=== PATIENT | female | born 1995 | race African-American/Black ===

== ENCOUNTER 2018-07-21 17:54 | Emergency (ER) | payer SELFPAY ==
[~2018-07-21] VITALS: Ht 180.3 cm; Wt 55.0 kg
[2018-07-21] MEDS ORDERED: IBUPROFEN 600MG TABLET PO ONE (19:15)
[2018-07-21] MEDS ORDERED: ONDANSETRON 4MG ODT PO ONE (19:30)
[2018-07-21 20:59] VITALS: BP 128/79
== END 2018-07-21 21:01 | disposition home or self-care (01) ==
LOC: ER 17:54
DX: S02.2XXA Fracture of nasal bones, initial encounter for closed fracture (principal); Z88.1 Allergy status to other antibiotic agents; Y08.89XA Assault by other specified means, initial encounter; Y93.89 Activity, other specified; Y92.89 Other specified places as the place of occurrence of the external cause; Y99.8 Other external cause status
CPT/HCPCS: 70160; 81025; 99284; Q0162

== ENCOUNTER 2018-10-05 07:26 | Emergency (ER) | payer MEDICAID ==
[~2018-10-05] VITALS: Ht 170.2 cm; Wt 53.4 kg
[2018-10-05] MEDS ORDERED: PENICILLIN G BENZATHINE 1,200,000 UNITS/2ML SYR IM ONE (08:15)
[2018-10-05] MEDS ORDERED: ACETAMINOPHEN WITH CODEINE 120-12MG/5ML UDC PO ONE (08:15)
[2018-10-05 08:18] VITALS: BP 140/74
== END 2018-10-05 08:28 | disposition home or self-care (01) ==
LOC: ER 07:26
DX: J02.9 Acute pharyngitis, unspecified (principal); F17.200 Nicotine dependence, unspecified, uncomplicated; Z88.8 Allergy status to other drugs, medicaments and biological substances
CPT/HCPCS: 81025; 87070; 87430; 96372; 99283; J0561

== ENCOUNTER 2019-01-29 01:55 | Emergency (ER) | payer MEDICAID ==
[~2019-01-29] VITALS: Ht 167.6 cm; Wt 54.0 kg
[2019-01-29] MEDS ORDERED: IBUPROFEN 600MG TABLET PO ONE (07:00)
[2019-01-29] MEDS ORDERED: BACITRACIN ZINC OINT UDPKT TOP ONE (07:00)
[2019-01-29 07:08] VITALS: BP 118/76
== END 2019-01-29 07:54 | disposition home or self-care (01) ==
LOC: ER 01:55
DX: S93.602A Unspecified sprain of left foot, initial encounter (principal); W05.2XXA Fall from non-moving motorized mobility scooter, initial encounter; Y93.89 Activity, other specified; Y92.9 Unspecified place or not applicable; Z88.8 Allergy status to other drugs, medicaments and biological substances
CPT/HCPCS: 73610; 73630; 81025; 99283; A4217; Z7610

== ENCOUNTER 2019-10-01 12:23 | Emergency (ER) | payer MEDICAID ==
[~2019-10-01] VITALS: Ht 170.2 cm; Wt 82.0 kg
[2019-10-01 13:13] VITALS: BP 115/67
[2019-10-01] MEDS ORDERED: ACETAMINOPHEN WITH CODEINE 300/30MG TABLET PO ONE (14:00)
[2019-10-01] MEDS ORDERED: AMOXICILLIN/POTASSIUM CLAVULANATE 875/125MG TAB PO ONE (14:00)
[2019-10-01] MEDS ORDERED: OXYMETAZOLINE HCL NASAL SPRAY 15ML BOTHNSTRLS SCH (21:00)
== END 2019-10-01 14:45 | disposition home or self-care (01) ==
LOC: ER 12:33
DX: S02.2XXA Fracture of nasal bones, initial encounter for closed fracture (principal); Y08.89XA Assault by other specified means, initial encounter; Y93.9 Activity, unspecified; Y92.9 Unspecified place or not applicable; F31.9 Bipolar disorder, unspecified; Z88.8 Allergy status to other drugs, medicaments and biological substances
CPT/HCPCS: 99284; Z7610

== ENCOUNTER 2021-03-15 07:19 | Emergency (ER) | payer MEDICAID ==
[~2021-03-15] VITALS: Ht 170.2 cm; Wt 63.0 kg
[2021-03-15 08:04] LABS: BASOPHILS % 0.7 % (0.0-2.0); EOSINOPHILS % 0.5 % (0.0-5.0); HEMATOCRIT. 40.2 % (36.0-48.0); LYMPHOCYTES % 23.3 % (20.0-50.0); MEAN CORPUSCULAR HEMOGLOBIN 26.2 pg (28.0-32.0); MEAN PLATELET VOLUME 8.3 fl (7.4-10.4); MONOCYTES % 7.7 % (2.0-8.0); NEUTROPHILS % 67.8 % (40.0-76.0); PLATELET 373 x1000/uL (130-400); RED BLOOD CELL COUNT 4.96 mill/uL (4.2-5.4); RED CELL DISTRIBUTION WIDTH 16.9 % (11.6-14.6)
[2021-03-15 08:07] LABS: CLARITY URINE CLOUDY (CLEAR); COLOR URINE YELLOW (YELLOW); KETONES URINE NEGATIVE (NEGATIVE); LEUKOCYTE ESTERASE URINE 2+ (NEGATIVE); NITRITE URINE POSITIVE (NEGATIVE); OCCULT BLOOD URINE 1+ (NEGATIVE); PH URINE 6.5 (4.5-8.0); PROTEIN URINE NEGATIVE (NEGATIVE); SPECIFIC GRAVITY URINE 1.005 (1.005-1.030); UROBILINOGEN URINE 0.2 E.U./dL (0.2-1.0)
[2021-03-15 08:10] LABS: CHLORIDE 107 mEq/L (98-107)
[2021-03-15 08:22] LABS: B-HCG QUANTITATIVE < 1 mIU/mL (<3)
[2021-03-15] MEDS ORDERED: METR-167 MT (09:06)
[2021-03-15] MEDS ORDERED: IBUP-2029 MT (09:07)
[2021-03-15] MEDS ORDERED: CEPH500C2 MT (09:07)
[2021-03-15] MEDS ORDERED: CEFTRIAXONE SODIUM 500 MG/VIAL IM ONE (09:15)
[2021-03-15 09:52] VITALS: BP 119/76
== END 2021-03-15 10:06 | disposition home or self-care (01) ==
LOC: ER 07:42
DX: N73.0 Acute parametritis and pelvic cellulitis (principal); N39.0 Urinary tract infection, site not specified; Z88.1 Allergy status to other antibiotic agents
CPT/HCPCS: 36415; 80053; 81003; 81025; 84702; 85025; 86850; 86900; 86901; 87077; 87086; 87186; 96372; 99283; J0696

== ENCOUNTER 2022-12-31 02:00 | Emergency (ER) | payer MEDICAID ==
[~2022-12-31] VITALS: Ht 162.6 cm; Wt 80.0 kg
[~2022-12-31 02:00] MED LIST: CEPH500C2 MT; IBUP-2029 MT; METR-167 MT
[2022-12-31 02:08] VITALS: BP 142/75
[2022-12-31 05:14] LABS: CLARITY URINE CLEAR (CLEAR); COLOR URINE ORANGE (YELLOW); KETONES URINE NEGATIVE (NEGATIVE); LEUKOCYTE ESTERASE URINE TRACE (NEGATIVE); NITRITE URINE NEGATIVE (NEGATIVE); OCCULT BLOOD URINE 3+ (NEGATIVE); PH URINE 7.5 (4.5-8.0); PROTEIN URINE NEGATIVE (NEGATIVE); SPECIFIC GRAVITY URINE 1.013 (1.005-1.030); UROBILINOGEN URINE 0.2 E.U./dL (0.2-1.0)
[2022-12-31 06:26] LABS: HCG SCREEN NEGATIVE
== END 2022-12-31 07:24 | disposition home or self-care (01) ==
LOC: ER 02:00
DX: Z00.00 Encounter for general adult medical examination without abnormal findings (principal); F15.90 Other stimulant use, unspecified, uncomplicated; Z86.59 Personal history of other mental and behavioral disorders
CPT/HCPCS: 81003; 81025; 84703; 99283

== ENCOUNTER 2023-04-26 08:35 | Emergency (ER) | payer MEDICAID ==
[~2023-04-26] VITALS: Ht 170.2 cm; Wt 67.0 kg
[2023-04-26 08:41] VITALS: BP 121/75; O2SAT 99
[2023-04-26 08:44] VITALS: PULSE 118; RESP 18
[2023-04-26 09:45] VITALS: TEMP 98.9
[2023-04-26] MEDS ORDERED: ACETAMINOPHEN 325MG TABLET PO ONE (09:45)
[2023-04-26] MEDS ORDERED: NAPR-1129 MT (10:20)
== END 2023-04-26 10:46 | disposition home or self-care (01) ==
LOC: ER 08:35
DX: S06.9XAA Unspecified intracranial injury with loss of consciousness status unknown, initial encounter (principal); J45.909 Unspecified asthma, uncomplicated; G89.11 Acute pain due to trauma; Z88.1 Allergy status to other antibiotic agents; Y04.0XXA Assault by unarmed brawl or fight, initial encounter; Y93.89 Activity, other specified; Y92.89 Other specified places as the place of occurrence of the external cause; Y99.8 Other external cause status
CPT/HCPCS: 81025; 99284

== ENCOUNTER 2025-02-03 12:10 | Emergency (ER) | payer MEDICAID, OTHER ==
[~2025-02-03] VITALS: Ht 167.6 cm; Wt 74.0 kg
[~2025-02-03 12:10] MED LIST changes: +NAPR-1129 MT
[2025-02-03 12:23] VITALS: O2SAT 99
[2025-02-03 12:32] VITALS: BP 125/84; RESP 14; TEMP 36.8; O2SAT 99
[2025-02-03 13:22] LABS: BASOPHILS % 0.5 % (0.0-2.0); EOSINOPHILS % 0.9 % (0.0-5.0); HEMATOCRIT. 39.3 % (36.0-48.0); HEMOGLOBIN. 12.7 g/dL (12.0-16.0); LYMPHOCYTES % 24.6 % (20.0-50.0); MEAN CORPUSCULAR HEMOGLOBIN 28.4 pg (28.0-32.0); MEAN CORPUSCULAR HGB CONC 32.2 g/dL (31.0-37.0); MEAN CORPUSCULAR VOLUME 88.1 fL (81.0-99.0); MEAN PLATELET VOLUME 7.3 fl (7.4-10.4); MONOCYTES % 3.3 % (2.0-8.0); NEUTROPHILS % 70.7 % (40.0-76.0); PLATELET 413 x1000/uL (130-400); RED BLOOD CELL COUNT 4.46 mill/uL (4.2-5.4); RED CELL DISTRIBUTION WIDTH 14.8 % (11.6-14.6); WHITE BLOOD COUNT 9.8 x1000/uL (4.5-11.0)
[2025-02-03 14:09] LABS: CHLORIDE 102 mEq/L (98-107); SODIUM 139 mEq/L (136-145)
[2025-02-03 14:10] LABS: CARBON DIOXIDE 27 mEq/L (21-32); HCG SCREEN NEGATIVE
[2025-02-03 14:15] LABS: CREATININE 0.7 mg/dL (0.6-1.0); GLUCOSE 103 mg/dL (70-105); UREA NITROGEN BLOOD 6 mg/dL (9-23)
[2025-02-03 14:23] VITALS: PULSE 88
== END 2025-02-03 14:34 | disposition home or self-care (01) ==
LOC: ER 12:10
DX: Z32.02 Encounter for pregnancy test, result negative (principal); R10.9 Unspecified abdominal pain; J45.909 Unspecified asthma, uncomplicated; F10.90 Alcohol use, unspecified, uncomplicated; F12.90 Cannabis use, unspecified, uncomplicated; Z88.1 Allergy status to other antibiotic agents; Y90.9 Presence of alcohol in blood, level not specified
CPT/HCPCS: 36415; 80048; 81025; 84703; 85025; 99283